=== PATIENT | male | born 1960 | race Caucasian/White ===

== ENCOUNTER 2025-04-26 20:36 | Observation (INO) ==
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
[2025-04-26] MEDS: SODIUM CHLORIDE 0.9% 1,000 ML IV ONE (21:12)
[2025-04-26 21:22] LABS: Basophils # (auto) 0.06 K/uL (0.00-0.20); Basophils % (auto) 0.6 %; Eosinophils # (auto) 0.27 K/uL (0.00-0.50); Eosinophils % (auto) 2.5 %; Hematocrit (blood only) 41.1 % (42.0-52.0); Hemoglobin 14.5 g/dl (14.0-18.0); Immature Granulocytes # (auto) 0.03 K/uL (0.01-0.20); Immature Granulocytes % (auto) 0.3 %; Lymphocytes # (auto) 3.07 K/uL (1.20-3.40); Lymphocytes % (auto) 28.6 %; Mean Corpuscular Hemoglobin 32.2 pg (25.0-34.0); Mean Corpuscular Hgb Conc 35.3 g/dL (32.0-36.0); Mean Corpuscular Volume 91.3 fL (80.0-100.0); Mean Platelet Volume 10.1 fL (9.4-12.4); Monocytes # (auto) 0.84 K/uL (0.11-0.59); Monocytes % (auto) 7.8 %; Neutrophils # (auto) 6.45 K/uL (1.40-6.50); Neutrophils % (auto) 60.2 %; Platelet Count 279 K/uL (130-400); RDW Coefficient of Variation 13.1 % (11.5-14.5); RDW Standard Deviation 43.6 fL (36.4-46.3); White Blood Count 10.72 K/ul (4.8-10.8)
[2025-04-26 21:29] LABS: BUN Creatinine Ratio 18.3 (10-20); Creatinine Clr Calc Pharmacy 78.4 ml/min; Magnesium 1.7 mg/dl (1.7-2.4); Potassium 3.5 mmol/L (3.5-5.1)
[2025-04-26 21:36] LABS: Troponin I High Sensitivity 4.4 pg/ml (0-20)
[2025-04-26 21:49] LABS: D Dimer 260 ug/L FEU (0-500)
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
[2025-04-27] MEDS ORDERED: ACETAMINOPHEN 325 MG TAB PO PRN (00:12)
--- NOTE | 2025-04-27 00:18 | XRay Report ---
Exam(s): XR CXR 1 VIEW EXAM: XR Chest, 1 View CLINICAL HISTORY: Reason for exam: left sided chest pain. TECHNIQUE: Frontal view of the chest. COMPARISON: Prior chest x-ray from November 23, 2023. FINDINGS: Lungs: There is mild to moderate peribronchial thickening of the central lower lobe bronchi. No consolidation. Pleural space: Unremarkable. No pneumothorax. Heart: Unremarkable. No cardiomegaly. Mediastinum: Unremarkable. Normal mediastinal contour. Bones/joints: Status post anterior fusion of the cervical spine. No acute fracture. IMPRESSION: Bronchitis, which may be of infectious or inflammatory etiologies. No consolidation or pleural effusion. Electronically signed by: Sally Timmons MD 04/27/25 00:16 AM
[2025-04-27] MEDS: MAGNESIUM SULFATE / D5W 1 GM/100 ML BAG IV STA (00:25)
[2025-04-27 00:45] LABS: Chol HDL Ratio 3.9 (0-5)
[2025-04-27 01:02] LABS: Thyroid Stimulating Hormone 4.955 uIu/ml (0.300-4.500)
--- NOTE | 2025-04-27 01:02 | CT Scan Report ---
Exam(s): CT HEAD Without Contrast EXAM: CT Head Without Intravenous Contrast CLINICAL HISTORY: Reason for exam: syncope. TECHNIQUE: Axial computed tomography images of the head/brain without intravenous contrast. CTDI is 37.32 mGy and DLP is 624.41 mGy-cm. Automated exposure control was utilized for the study. A dose lowering technique was utilized adhering to the principles of ALARA. COMPARISON: Prior head CT from November 23, 2023. FINDINGS: Brain: Unremarkable. No hemorrhage. No significant white matter disease. No edema. Ventricles: Unremarkable. No ventriculomegaly. Bones/joints: Unremarkable. No acute fracture. Soft tissues: Unremarkable. Sinuses: Chronic ethmoid sinusitis.. No acute sinusitis. Mastoid air cells: Unremarkable as visualized. No mastoid effusion. IMPRESSION: No evidence of acute intracranial pathology. Electronically signed by: Sally Timmons MD 04/27/25 01:01 AM
[2025-04-27 07:36] LABS: Estimated Average Glucose 105 mg/dl; Hemoglobin A1C 5.3 % (4.5-5.6)
--- NOTE | 2025-04-27 09:23 | Ultrasound Report ---
EXAM: US carotid doppler BI CLINICAL HISTORY: Syncope. TECHNIQUE: Ultrasound examination of the carotid arteries was performed in real time and duplex. One or more of the following were performed: spectral analysis, resistive index, waveform analysis, and pulsed Doppler. COMPARISON: None. FINDINGS: Doppler Profile: Vessel Right (PSV/EDV cm/sec) Left (PSV/EDV cm/sec) Common Carotid Artery (CCA) Proximal 98.4/29 Distal 105/29 128/35 86.5/26.5 Bulb 91.9/21.7 84.4/23.8 Internal Carotid Artery (ICA) - Proximal 47.7/15.8 Mid 56.2/21.9 Distal 69.7/32.9 61.9/14.4 70.9/25.6 71.8/30 External Carotid Artery (ECA) 107/27 102.5/15.3 Vertebral Artery (VA) 50/21.9 47/17.5 Right ICA/CCA Ratio 0.9 Left ICA/CCA Ratio 1.0 Plaque Characterization: No significant plaque formation was seen. Mild atherosclerotic intimal thickening is present. Stenosis Evaluation: No significant stenosis in the internal carotid artery bilaterally. ICA/CCA ratio remains within normal limits (less than 2.0). Vertebral Arteries: Normal flow noted in the vertebral arteries bilaterally. No evidence of vertebral artery stenosis or subclavian steal phenomenon. There is a complex nodule in the right thyroid lobe measuring 2.0 0.8 x 2.2 cm with a central cystic area, peripheral iso to hyperechoic area and a few slightly hypoechoic areas. Another smaller nodule is also seen with vascularity. Enlarged lymph node in the right side of neck measures 1.57 cm in length, 0.44 cm in AP and 0.9 cm in TS size. IMPRESSION: 1. Normal hemodynamic characteristics in examined vessels. 2. Clinical correlation with symptoms and further evaluation as indicated. Routine follow-up or additional imaging may be recommended based on clinical presentation or if significant plaque is identified. 3. Complex nodules in right thyroid lobe need further evaluation with complete ultrasound for TI-RADS evaluation. 4. Enlarged reactive right cervical lymph node. Suggest clinical correlation and a detailed neck ultrasound. NASCET Criteria for carotid stenosis: Degree of Stenosis Measurement Criteria (Angiography) Peak Systolic Velocity (PSV) End Diastolic Velocity (EDV) PSV Ratio ICA/CCA Clinical Indications for Surgery Normal No narrowing 125 cm/s 40 cm/s 2.0 Not indicated for surgery Mild Stenosis 50% narrowing of the carotid artery 125 cm/s 40 cm/s 2.0 Generally, not indicated for surgery Moderate Stenosis 50% to 69% narrowing of the carotid artery 125 - 230 cm/s 40 - 100 cm/s 2.0 - 4.0 May be considered for surgery based on individual factors Severe Stenosis 70% to 99% narrowing of the carotid artery 230 cm/s 100 cm/s 4.0 Recommended for surgery in symptomatic patients Total Occlusion 100% blockage of the carotid artery No flow detected No flow detected Not applicable Surgery is not typically performed due to complete blockage Electronically signed by Fuad Guzmán 04-27-2025 09:22 AM
--- NOTE | 2025-04-27 09:28 | Electrocardiogram Report ---
Test Reason : Blood Pressure : */* mmHG Vent. Rate : 67 BPM Atrial Rate : 67 BPM P-R Int : 188 ms QRS Dur : 148 ms QT Int : 454 ms P-R-T Axes : 68 -27 31 degrees QTcB Int : 479 ms Normal sinus rhythm with sinus arrhythmia Right bundle branch block Septal infarct (cited on or before 23-Dec-2023) Abnormal ECG When compared with ECG of 23-Dec-2023 15:25, Questionable change in initial forces of Septal leads Confirmed by Hima Lyons ([id number]) on 04/27/2025 9:28:05 AM Referred By: REFERRED SELF Confirmed By: Hima Lyons
--- NOTE | 2025-04-27 10:10 | XCELERA ---
[id number] \\[id number]
[2025-04-27 12:10] VITALS: TEMP 97.9; O2SAT 97
--- NOTE | 2025-04-27 12:14 | Discharge Summary ---
Date of Service April 27, 2025 Admission HPI Per Admitting Provider Tobi Gonzalez is a 65-year-old male with history of GERD, absent from medical care for many years presenting with a syncopal event. Patient was working outside on his camper roof all day today. He reports drinking water and Gatorade throughout the day and not feeling dehydrated. In the evening he was in the garage sitting at his work bench and drinking a beer when he began feeling the room spinning and became lightheaded and warm. He did pass out. His found him slumped over his workbench and unresponsive. She tried to wake him but he was out for several minutes. When he woke up he responded very slowly but words were clear and appropriate. Patient then developed some pinching left-sided chest pain 8/10 in severity, nonpleuritic and non-positional. No seizure-like activity or incontinence witnessed Family reports that he has episodes where he appears pale and "glassy eyed" Patient denies fever, chills, chest pain at present, palpitations. No abdominal pain, nausea, vomiting, diarrhea. He has been eating and drinking well. no focal numbness/tingling/weakness. He does have occasional numbness and heaviness in his bilateral legs since having back surgery. Patient is active, walks his dogs frequently, performs home maintenance and tasks such as hanging drywall. He has never experienced exertional chest pain or shortness of breath. In the ER he is afebrile, hemodynamically stable, no acute distress No events noted on telemetry ER course: Normal saline x 1 L Principal Diagnosis syncope Discharge Exam Gen: NAD, WD/WN HEENT: NCAT, normal conjunctiva, anicteric sclera, MMM CV: RRR, no m/r/g, S1/S2 normal, no LE edema Resp: CTAB, symmetrical chest rise, no increased WOB Abd: Soft, NT/ND, +BS MSK: Full ROM, no gross deformities on inspection Skin: Warm, dry, well-perfused, no rashes appreciated Neuro: AOx3, CN II-XII grossly intact, no focal deficits Psych: Full, euthymic affect. Speech pace and content normal. Discharge Data Allergies Allergy/AdvReac Type Severity Reaction Status Date / Time No Known Allergies Allergy Verified 04/26/25 22:49 Consultations 06/29/25 22:22 ED Decision to Admit Stat Ordered Studies 04/26/25 21:05 CT head/brain wo con Stat 04/26/25 22:57 Carotid duplex [US carotid doppler BI] Routine Hospital Course (1) Syncope: (2) Left-sided chest pain: Plan 65-year-old male with history of GERD presenting with an episode of syncope. He did have a prodrome of feeling warm, flushed, lightheaded, and diaphoretic prior to losing consciousness. Patient has had 2 syncopal episodes in the past, with similar prodrome. He has not had a full syncope workup performed and was admitted for further testing. #Syncope Patient had a syncopal episode after working outside in the heat for ~4 hours. He was found slumped over on a table by his . Did have a prodrome, no apparent post-ictal state, uncertain duration of LOC. No known cardiac disease or history of arrhythmia. This is his 3rd syncopal episode over reportedly 15 years, all with similar prodrome but otherwise unique settings. Head CT showed no acute intracranial pathology. Carotid Doppler US noted no stenosis or obstruction. CBC and CMP unremarkable. EKG showed nsr with RBBB. TTE showed EF 55-60%, no wall motion abnormalities or valvular pathology. Telemetry showed normal rhythm and rates 50s-70s bpm. Given prodrome, lack of neuro deficits, and previous similar episodes, low suspicion for acute neurological or cardiovascular issue causing syncope. May benefit from longer monitoring for arrhythmia in the outpatient setting. #Chest pain Patient reported 8/10 left-sided chest pain following syncopal episode. No similar symptoms in the past. No cardiac history. EKG with no acute ischemic changes. Troponin x 1 negative. Echo and telemetry reassuring, as above #Thyroid nodule / Reactive cervical lymph node Incidental finding during carotid Doppler study: complex nodule in the right thyroid lobe measuring 2.0 0.8 x 2.2 cm, with a central cystic area, peripheral iso- to hyperechoic area, and a few slightly hypoechoic areas. Another smaller nodule is also seen with vascularity. Enlarged lymph node in the right side of neck measures 1.57 cm in length, 0.44 cm in AP and 0.9 cm in TS size. TSH level marginally elevated at 4.955 with FT4 of 0.70 Recommend outpatient follow up with complete neck US for TI-RADS evaluation #Health maintenance A1c, lipid panel and TSH checked; unremarkable except TSH as above Patient would benefit from establishing with a PCP for routine checkups. Total Time Total Time Spent Total Time Spent (In Minutes): <30 Discharge Plan Discharge Items Patient Disposition: Home - Self-Care Reason For Visit: SYNCOPE Discharge Diagnosis: syncope Condition on Discharge: Good Activity: Per Instructions section Non-emergency contact: Primary Care Provider Call non-emergency contact if: your symptoms worsen Follow-up/Referrals: Henry Rodas MD [Outside Practitioners] - 04/30/25 2:00 pm (Date & Time 04/30/2025 2:00 PM Provider: Henry Rodas MD Family Medicine [facility] * Tobi - this appt is just a hospital follow up. Upon check in/out please request to be established with Dr. Robles* ) Alexey Herrera MD [Resident] - Diet: Regular Addtl Attending Provider Instructions: You were admitted to the hospital after an episode of syncope, or loss of consciousness. Given that this was your 3rd similar episode, a thorough workup was done to determine the cause. Your results were reassuring for any neurological issue, metabolic abnormality, or acute cardiovascular cause. Imagin g of your neck did show some abnormal findings in your thyroid and a lymph node that need to be evaluated further. You were deemed safe for discharge when symptom-free and any remaining testing you would need could be handled outpatient. Follow-up appointments: You will need to establish with a local PCP to continue investigation and management of this issue. If the [facility] appointment you mentioned cannot be arranged within one week after discharge from the hospital, you can call [phone] and ask to schedule an appointment with Dr. Herrera, the resident physician you saw during your admission. Call 911 or go to the ER if you experience any of the following: Sudden, severe abdominal pain or nausea/vomiting Severe chest pain, or chest pain that radiates (moves) to your jaw or arm Sudden, severe shortness of breath or difficulty breathing Thank you for allowing us to participate in your care. Pending Studies at Discharge: No Stand-Alone Forms: My [employer]Me[employer], Smoking Cessation Medications and DC Order Prescriptions: Continued multivitamin Tablet 1 tab PO QAM Discharge Orders: Discharge Order (Routine); Ordered 06/30/25 Ordered By: Alexey Herrera Admission Data Admit Date/Time: 04/26/25 22:57 Attending Provider: Lm Brewster Admit Provider: Brit Yi Primary Care Provider: PCP,NO Other Providers: Brit Yi Other Interventions: Discharge Summary Assessment (RN) Last Done: 04/27/25 15:50 Supervising Physician Co-Signing Physician Notes I personally examined the patient and verified all quintanilla points of history and exam, discussed case, and agree with decision making with Dr Herrera Feeling better. Other than feeling a little bit tired feels normal and would like to go home. Vitals noted, in general he is awake and alert pleasant no distress. HEENT normocephalic atraumatic mucous membranes moist. Breathing unlabored no accessory muscle use good effort. Skin without rashes pallor or icterus. Syncopeworking in the heat for about 4 hours (he notes that he was going in and out of the house and trying to stay hydrated, but at the same time it was an excessively hot day and he was working for about 4 hours)and then had syncopal eventwhenever he had the syncope he ended up leaning forward on his table rather than being totally horizontal which probably exacerbated the event. Fortunately he is neurologically intact and mentally intact. Given the prodrome, a vasoactive mechanism predominantly brought on by dehydration seems far away most likely. At the same time, reassuring rhythm/echo/carotids are noted. Safe/stable for home thyroid nodulenoted incidentally on carotid Dopplerdiscussed first would anticipate a dedicated thyroid ultrasound to confirm, and then if it is greater than a centimeter, would anticipate a biopsywe both agreed this can be carried through as an outpatient, he notes he had similar with his lymph node in the past (which also means that his reactive lymph node also incidentally noted on the carotid Doppler is already worked up and fortunately not of any ominous significance) safe/stable for home, otherwise as above Resident Activity Tracking Resident Involvement: Resident Care Provided Care Provided: Adult Hospital Medicine
[2025-04-27 15:53] VITALS: BP 144/86; PULSE 54; RESP 16
--- NOTE | 2025-04-28 10:38 | Electrocardiogram Report ---
Test Reason : Blood Pressure : */* mmHG Vent. Rate : 62 BPM Atrial Rate : 62 BPM P-R Int : 192 ms QRS Dur : 148 ms QT Int : 466 ms P-R-T Axes : 67 -12 29 degrees QTcB Int : 472 ms Normal sinus rhythm Right bundle branch block Abnormal ECG When compared with ECG of 26-Apr-2025 20:40, Criteria for Septal infarct are no longer Present Confirmed by Hima Lyons ([id number]) on 04/28/2025 10:38:03 AM Referred By: REFERRED SELF Confirmed By: Hima Lyons
== END 2025-04-27 16:43 | disposition home or self-care (01) ==
LOC: ED 20:36 → 2N 20:36 → SUATTDRO 22:57 → 2N 23:38